=== PATIENT | female | born 1955 | race African-American/Black ===

== ENCOUNTER 2020-06-06 15:45 | Outpatient (CLI) | payer MEDICARE, MEDICAID, SELFPAY ==
--- NOTE | ~2020-06-06 | XR_ITS ---
EXAMINATION: XR hand BI arthritis min 3V DATE: 06/06/2020 16:52 INDICATION: Orbital involvement in systemic lupus erythematosus. TECHNIQUE: 4 views of right hand and 4 views of left hand on a total of 7 radiographs were obtained. COMPARISON: None. FINDINGS: RIGHT HAND: Bone alignment is normal. There is ankylosis of lunotriquetral joint. No fracture. There is mild osteoarthritis of first carpometacarpal joint, first interphalangeal joint, and second-fourth distal interphalangeal joints. LEFT HAND: Bone alignment is normal. No fracture. There is mild osteoarthritis of first-third metacar pophalangeal joints, fifth proximal interphalangeal joint, and second, third, and fifth distal interp halangeal joints. IMPRESSION: 1. Mild polyarticular osteoarthritis. Reviewed, dictated and finalized at location B. ROAD COMMISSIONER
--- NOTE | ~2020-06-06 | XR_ITS ---
EXAMINATION: XR lumbar spine min 4V DATE: 06/06/2020 16:52 INDICATION: Organ involvement in systemic lupus erythematosus. TECHNIQUE: 5 views of lumbar spine were obtained. COMPARISON: None. FINDINGS: There is 3 degrees dextrocurvature of lumbar spine. There is 2 mm anterolisthesis of L4 on L5. Vertebral body heights are normal. There is mildly decreased disc height at L4-L5. There is multi level facet joint osteoarthritis, severe in lower lumbar spine. IMPRESSION: 1. Mild lumbar spondylosis. Reviewed, dictated and finalized at location B. WAD OPERATOR ADJUSTER IMPRESSION: 1. Mild lumbar spondylosis.
--- NOTE | ~2020-06-06 | XR_ITS ---
XR foot RT standing 2V DATE: 06/06/2020 16:52 INDICATION: Systemic lupus erythematosus TECHNIQUE: Standing AP and lateral views COMPARISON: None FINDINGS: Plate and screws are noted along the distal fibular shaft and lateral malleolus. There are 4 distal tibial screws. No recent fracture or dislocation, periosteal reaction or bone destruction. Osteopenia. IMPRESSION: Postoperative changes of distal fibula and tibia Pes planus Osteopenia Reviewed, dictated and finalized at location A. HERIZATION CREW LEADER
--- NOTE | ~2020-06-06 | XR_ITS ---
EXAMINATION: XR foot LT standing 2V DATE: 06/06/2020 16:52 INDICATION: Organ involvement in systemic lupus erythematosus. TECHNIQUE: 2 views of left foot standing were obtained. COMPARISON: None. FINDINGS: Bone alignment is normal. No fracture. There is mild osteoarthritis of talonavicular joint and first metatarsophalangeal joint. IMPRESSION: 1. Mild polyarticular osteoarthritis. Reviewed, dictated and finalized at location B. IMPLEMENT MECHANIC
--- NOTE | ~2020-06-06 | XR_ITS ---
EXAMINATION: XR knee LT min 4V DATE: 06/06/2020 16:52 INDICATION: Organ involvement in systemic lupus erythematosus. TECHNIQUE: 4 views of left knee were obtained. COMPARISON: None. FINDINGS: Bone alignment is normal. No fracture. There is mild tricompartmental osteoarthritis charac terized by tiny marginal osteophytes. No knee joint effusion. IMPRESSION: 1. Mild left knee osteoarthritis. Reviewed, dictated and finalized at location B. OR WIND INSTRUMENT REPAIRER
--- NOTE | ~2020-06-06 | XR_ITS ---
EXAMINATION: XR knee RT min 4V DATE: 06/06/2020 16:52 INDICATION: Organ involvement in systemic lupus erythematosus. TECHNIQUE: 4 views of right knee were obtained. COMPARISON: None. FINDINGS: Bone alignment is normal. No fracture. There is mild tricompartmental osteoarthritis charac terized by tiny marginal osteophytes. No knee joint effusion. IMPRESSION: 1. Mild right knee osteoarthritis. Reviewed, dictated and finalized at location B. ICAL QUALITY ANALYST
== END 2020-06-06 15:46 | disposition home or self-care (01) ==
PROVIDERS: PCP Family Medicine; Visit Provider Internal Medicine
DX: M32.19 Other organ or system involvement in systemic lupus erythematosus (principal); M47.896 Other spondylosis, lumbar region; M85.871 Other specified disorders of bone density and structure, right ankle and foot; M21.41 Flat foot [pes planus] (acquired), right foot; M17.0 Bilateral primary osteoarthritis of knee
CPT/HCPCS: 72110; 73130; 73564; 73620

== ENCOUNTER 2021-03-20 13:37 | Outpatient (CLI) | payer MEDICARE, MEDICAID, SELFPAY ==
[2021-03-20 14:01] LABS: Hematocrit 38.6 % (37.0-47.0); Hemoglobin 12.3 g/dL (12.0-15.0); Mean Corpuscular HGB Conc 31.9 g/dl (32-36); Mean Corpuscular Hemoglobin 28.7 pg (26-34); Mean Corpuscular Volume 90.2 fl (80-100); Platelet Count Result 153 k/mm3 (150-375); Red Blood Count 4.28 M/mm3 (4.2-5.4); Red Cell Distribution Width 12.8 % (11.5-14.5); White Blood Count 12.7 K/mm3 (4.5-10.0)
[2021-03-20 14:13] LABS: Alanine Aminotransferase 26 U/L (4-35); Albumin Level 4.4 g/dL (3.5-5.1); Alkaline Phosphatase 61 U/L (38-126); Anion Gap 9 mmol/L (8-16); Aspartate Amino Transferase 36 U/L (14-36); Bilirubin,Total 0.3 mg/dL (0.2-1.3); Blood Urea Nitrogen 30 mg/dL (7-17); Calcium 9.2 mg/dL (8.4-10.2); Carbon Dioxide 27 mmol/L (22-30); Chloride 100 mmol/L (98-107); Estimated Glomerular Filt Rate 46; Glucose 96 mg/dL (65-110); Potassium 4.1 mmol/L (3.4-5.0); Sodium 136 mmol/L (137-145)
[2021-03-20 14:42] LABS: Erythrocyte Sedimentation Rate 15 mm/hr (0-20)
[2021-03-20 17:27] LABS: Add Urine Microscopic? YES; Appearance Urine Clear (Clear); Bilirubin Urine Negative (Negative); Blood Urine Negative (Negative); Color Urine Yellow (Yellow); Glucose Urine UA Negative (Negative); Ketones Urine 1+ mg/dL (Negative); Leukocyte Esterase Ur 1+ LEU/UL (Negative); Nitrate Urine Negative (Negative); Protein Urine 1+ mg/dL (Negative); Specific Grav Ur >= 1.030 (1.001-1.035); Urobilinogen Urine 0.2 mg/dL (<2.0); pH Urine 5.5 (5.0-9.0)
[2021-03-20 19:42] LABS: WBC Urine 0-3 /hpf
[2021-03-20 19:43] LABS: RBC Urine 0-2 /hpf (0-2); Squamous Epithelial Cell Urine Occasional /hpf (Few)
[2021-03-20 19:44] LABS: Bacteria Urine 1+ /hpf
== END 2021-03-20 13:38 | disposition home or self-care (01) ==
PROVIDERS: PCP Family Medicine; Visit Provider Internal Medicine
DX: M19.90 Unspecified osteoarthritis, unspecified site (principal); M32.9 Systemic lupus erythematosus, unspecified; Z79.899 Other long term (current) drug therapy
CPT/HCPCS: 36415; 80053; 81001; 85027; 85652; 99212; G0463